=== PATIENT | female | born 1995 | race Asian ===

== ENCOUNTER 2021-10-05 11:59 | Emergency (ER) | payer SELFPAY ==
[~2021-10-05] VITALS: Ht 160 cm; Wt 45.0 kg
[2021-10-05] MEDS ORDERED: SODIUM CHLORIDE 0.9% 1,000 ML IV ONE (13:00)
[2021-10-05] MEDS ORDERED: METOCLOPRAMIDE HCL 10MG/2ML VIAL IV ONE (13:00)
[2021-10-05 13:22] LABS: BASOPHILS % 0.4 % (0.0-2.0); EOSINOPHILS % 1.9 % (0.0-5.0); HEMATOCRIT. 40.3 % (36.0-48.0); HEMOGLOBIN. 13.8 g/dL (12.0-16.0); LYMPHOCYTES % 24.3 % (20.0-50.0); MEAN CORPUSCULAR HEMOGLOBIN 29.8 pg (28.0-32.0); MEAN CORPUSCULAR VOLUME 87.1 fL (81.0-99.0); MEAN PLATELET VOLUME 7.8 fl (7.4-10.4); MONOCYTES % 5.9 % (2.0-8.0); NEUTROPHILS % 67.5 % (40.0-76.0); PLATELET 260 x1000/uL (130-400); RED BLOOD CELL COUNT 4.63 mill/uL (4.2-5.4); RED CELL DISTRIBUTION WIDTH 13.6 % (11.6-14.6)
[2021-10-05 13:31] LABS: CHLORIDE 108 mEq/L (98-107)
[2021-10-05 13:35] LABS: ETHANOL BLOOD < 10 mg/dL
[2021-10-05 13:58] LABS: HCG SCREEN NEGATIVE
[2021-10-05] MEDS ORDERED: ONDA4TAB5 PO (16:39)
[2021-10-05 17:22] VITALS: BP 111/75
== END 2021-10-05 17:23 | disposition home or self-care (01) ==
LOC: ER 11:59
DX: R11.2 Nausea with vomiting, unspecified (principal); F32.A Depression, unspecified; Z79.899 Other long term (current) drug therapy
CPT/HCPCS: 36415; 71045; 80053; 80320; 83605; 83690; 84484; 84703; 85025; 93005; 96361; 96374; 99285; J2765; J7030; G0480